=== PATIENT | male | born 1985 | race Caucasian/White ===

== ENCOUNTER 2020-01-25 23:25 | Emergency (ER) | payer OTHER ==
[2020-01-25] MEDS ORDERED: Orphenadrine 100 MG Tab.ER PO STA (23:52)
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
== END 2020-01-26 00:15 | disposition home or self-care (01) ==
LOC: JD.ED 23:25
DX: S29.012A Strain of muscle and tendon of back wall of thorax, initial encounter (principal); V43.52XA Car driver injured in collision with other type car in traffic accident, initial encounter
CPT/HCPCS: 99283; A9270